=== PATIENT | female | born 1955 | race Caucasian/White ===

== ENCOUNTER 2018-01-17 06:49 | Day surgery (SDC) | payer OTHER, MEDICAID ==
[2018-01-17] MEDS ORDERED: LACTATED RINGER'S 1,000 ML IV (08:00)
[2018-01-17] MEDS ORDERED: BUPIVACAINE 0.25% (MPF) 30 ML INJ (08:14)
[2018-01-17] MEDS ORDERED: DEXAMETHASONE 4 MG/ML 1 ML INJ (08:14)
[2018-01-17] MEDS ORDERED: PROPOFOL 20 ML (08:25)
[2018-01-17] MEDS ORDERED: LIDOCAINE 2% (SDV) 5 ML INJ (08:25)
[2018-01-17] MEDS ORDERED: MIDAZOLAM 1 MG/ML 2 ML INJ (08:25)
[2018-01-17] MEDS: POLYMYXIN/BACITRACIN 1L IRRIG IRR (08:39)
[2018-01-17] MEDS: BUPIVACAINE 0.5% (SDV) 30 ML INJ (08:39)
[2018-01-17] MEDS: DEXAMETHASONE 4 MG/ML 1 ML INJ (08:39)
[2018-01-17] MEDS: LIDOCAINE 2% (MDV) 20 ML INJ (08:39)
[2018-01-17] MEDS: TRIAMCINOLONE ACET 40 MG/ML INJ (08:39)
[2018-01-17] MEDS ORDERED: CEFAZOLIN 1 GM INJ (08:39)
[2018-01-17] MEDS ORDERED: FAMOTIDINE 20 MG INJ (08:40)
[2018-01-17] MEDS ORDERED: ONDANSETRON 4 MG INJ (08:40)
[2018-01-17] MEDS ORDERED: FENTAnyl 50 MCG/ML VIAL (08:40)
[2018-01-17] MEDS ORDERED: KETOROLAC 30 MG INJ (08:43)
[2018-01-17] MEDS ORDERED: POLYMYXIN/BACITRACIN 1L IRRIG (09:28)
[2018-01-17] MEDS ORDERED: HYDROmorphONE 1 MG/5 ML IV SYRINGE IV (10:00)
[2018-01-17] MEDS ORDERED: DIPHENHYDRAMINE 50 MG INJ IV (10:00)
[2018-01-17] MEDS ORDERED: MEPERIDINE 25 MG INJ IV (10:00)
[2018-01-17] MEDS ORDERED: FENTAnyl 50 MCG/ML VIAL IV (10:00)
[2018-01-17] MEDS ORDERED: ONDANSETRON 4 MG INJ IV (10:00)
[2018-01-17] MEDS ORDERED: PROCHLORPERAZINE 10 MG INJ IV (10:00)
[2018-01-17] MEDS: TRIAMCINOLONE ACET 40 MG/ML INJ INJ (10:11)
[2018-01-17] MEDS: BUPIVACAINE 0.5% 30 ML VIAL INJ (10:11)
[2018-01-17] MEDS ORDERED: morphine 2 MG INJ IV (10:30)
[2018-01-17] MEDS ORDERED: HYDROCODONE/APAP (5/325) TAB PO (10:30)
== END 2018-01-17 12:32 | disposition home or self-care (01) ==
LOC: SDS 06:49
DX: M20.41 Other hammer toe(s) (acquired), right foot (principal); M21.611 Bunion of right foot; E78.5 Hyperlipidemia, unspecified
CPT/HCPCS: 28285; 71045; 73630; 88304; 88311